=== PATIENT | female | born 1995 | race Caucasian/White ===

== ENCOUNTER 2016-04-30 22:09 | Outpatient (CLI) | payer OTHER ==
[~2016-04-30] VITALS: Ht 162.6 cm; Wt 66.6 kg
[~2016-04-30 22:09] MED LIST: FIORICET,ESG1 TABLET PO; MOTRIN400 MG PO; PRENATAL TABLE1 EAC3 PO; SINGULAIR5 MG PO
[2016-04-30 22:27] VITALS: BP 109/56
[2016-05-01] VITALS (14 sets, daily range): BP systolic 102–121; BP diastolic 56–77
[2016-05-01 01:14] LABS: EOSINOPHIL (%) 0.6 % (0-5); EOSINOPHIL COUNT 0.1 K/uL (0-0.3); HEMATOCRIT 33.5 % (36.0-46.0); IMMATURE GRANULOCYTE (%) 0.5 % (0.0-0.7); IMMATURE GRANULOCYTE COUNT 0.5 K/uL; LYMPHOCYTE COUNT 1.6 K/uL (1.0-2.8); MCHC 32.8 G/DL (30.0-36.0); MCV 79.2 FL (83-99); MEAN PLAT.VOLUME 11.8 uM^3 (9.5-12.4); MONOCYTE (%) 7.2 % (3-12); MONOCYTE COUNT 0.7 K/uL (0-0.8); NEUTROPHIL (%) 74.9 % (45-76); NEUTROPHIL COUNT 7.1 K/uL (1.8-6.4); PLATELET COUNT 268 K/uL (156-360); RBC DIS.WIDTH-CV 13.8 % (11.8-14.6); RBC DIS.WIDTH-SD 38.6 % (39-53); RED BLOOD COUNT 4.23 M/uL (3.80-5.20); WHITE BLOOD COUNT 9.6 K/uL (4.1-10.2)
== END 2016-05-01 17:06 | disposition home or self-care (01) ==
LOC: LDRP-OP → 2WEST 22:10 → LDRP-OP 06-01 00:56
PROVIDERS: Advanced Practice Midwife
DX: O47.1 False labor at or after 37 completed weeks of gestation (principal); O99.89 Other specified diseases and conditions complicating pregnancy, childbirth and the puerperium; Z3A.39 39 weeks gestation of pregnancy
CPT/HCPCS: 59025; 85025; G0378

== ENCOUNTER 2016-05-05 22:22 | Inpatient (IN) | payer OTHER ==
[2016-05-05 22:25] VITALS: BP 120/68
[2016-05-05 23:08] LABS: EOSINOPHIL (%) 0.2 % (0-5); HEMATOCRIT 34.4 % (36.0-46.0); IMMATURE GRANULOCYTE (%) 0.3 % (0.0-0.7); IMMATURE GRANULOCYTE COUNT 0.5 K/uL; LYMPHOCYTE COUNT 1.4 K/uL (1.0-2.8); MCH 25.9 PG (29.0-34.0); MCHC 32.8 G/DL (30.0-36.0); MCV 78.9 FL (83-99); MEAN PLAT.VOLUME 12.2 uM^3 (9.5-12.4); MONOCYTE (%) 5.1 % (3-12); MONOCYTE COUNT 0.7 K/uL (0-0.8); NEUTROPHIL (%) 84.6 % (45-76); NEUTROPHIL COUNT 12.2 K/uL (1.8-6.4); PLATELET COUNT 232 K/uL (156-360); RBC DIS.WIDTH-SD 39.2 % (39-53); RED BLOOD COUNT 4.36 M/uL (3.80-5.20); WHITE BLOOD COUNT 14.4 K/uL (4.1-10.2)
[2016-05-05 23:51] VITALS: BP 107/60
[2016-05-06] VITALS (18 sets, daily range): BP systolic 92–128; BP diastolic 49–62
[2016-05-06 06:04] LABS: BASE EXCESS -6.5 mEq/L (-3 to +3); CARBOXY HGB 0.4 % (0-5); METHEMOGLOBIN 1.8 % (0-1.5); PCO2 55 mm Hg (35-45)
[2016-05-06 06:07] LABS: BASE EXCESS -5.8 mEq/L (-3 to +3); BICARBONATE 20.1 mEq/L (22-26); METHEMOGLOBIN 1.7 % (0-1.5); PCO2 40 mm Hg (35-45); pH 7.31 (7.35-7.45)
[2016-05-06 06:08] LABS: PO2 < 28 mm Hg (80-100); SITE CHORD SAMPLE; pH 7.21 (7.35-7.45)
[2016-05-06 06:09] LABS: COMMENTS - BLOOD GASES ARTERIAL
[2016-05-06 06:09] LABS: COMMENTS - BLOOD GASES VENOUS; PO2 29 mm Hg (80-100); SITE CHORD SAMPLE
[2016-05-07 06:20] LABS: EOSINOPHIL (%) 0.9 % (0-5); EOSINOPHIL COUNT 0.1 K/uL (0-0.3); HEMATOCRIT 26.4 % (36.0-46.0); IMMATURE GRANULOCYTE (%) 0.5 % (0.0-0.7); IMMATURE GRANULOCYTE COUNT 0.1 K/uL; MCH 24.7 PG (29.0-34.0); MCHC 31.1 G/DL (30.0-36.0); MCV 79.5 FL (83-99); MONOCYTE (%) 8.6 % (3-12); NEUTROPHIL (%) 72.6 % (45-76); NEUTROPHIL COUNT 8.6 K/uL (1.8-6.4); PLATELET COUNT 208 K/uL (156-360); RBC DIS.WIDTH-CV 14.2 % (11.8-14.6); RBC DIS.WIDTH-SD 40.8 % (39-53); WHITE BLOOD COUNT 11.8 K/uL (4.1-10.2)
[2016-05-07 06:21] LABS: RED BLOOD COUNT 3.32 M/uL (3.80-5.20)
[2016-05-07 07:53] VITALS: BP 122/73
[2016-05-07 15:26] VITALS: BP 114/59
[2016-05-07 23:04] VITALS: BP 124/61
[2016-05-08 06:19] VITALS: BP 101/51
[2016-05-08] MEDS ORDERED: FEOSOL325 MG PO (12:44)
[2016-05-08] MEDS ORDERED: IBUPROFEN800 MG PO (12:44)
== END 2016-05-08 13:48 | disposition home or self-care (01) | DRG 775 ==
LOC: LDRP-OP 22:22 → 2WEST 22:23 → LDRP-OP 06-01 19:15
PROVIDERS: Advanced Practice Midwife; Obstetrics & Gynecology Obstetrics
PROC: 0W8NXZZ Division of Female Perineum, External Approach (ICD-10-PCS; principal; 2016-05-05)
PROC: 10907ZC Drainage of Amniotic Fluid, Therapeutic from Products of Conception, Via Natural or Artificial Opening (ICD-10-PCS; principal; 2016-05-05)
PROC: 00HU33Z Insertion of Infusion Device into Spinal Canal, Percutaneous Approach (ICD-10-PCS; 2016-05-06)
PROC: 3E0R3CZ (ICD-10-PCS; 2016-05-06)
PROC: 10E0XZZ Delivery of Products of Conception, External Approach (ICD-10-PCS; 2016-05-06)
PROC: 10S0XZZ Reposition Products of Conception, External Approach (ICD-10-PCS; 2016-05-06)
DX: O62.0 Primary inadequate contractions (principal); O66.0 Obstructed labor due to shoulder dystocia; O69.81X0 Labor and delivery complicated by cord around neck, without compression, not applicable or unspecified; O69.82X0 Labor and delivery complicated by other cord entanglement, without compression, not applicable or unspecified; O99.02 Anemia complicating childbirth; D62 Acute posthemorrhagic anemia; Z37.0 Single live birth; Z3A.40 40 weeks gestation of pregnancy
CPT/HCPCS: 36600; 82803; 85025; G0378; J2795; J3010; J7120

== ENCOUNTER 2016-06-25 22:59 | Emergency (ER) | payer OTHER ==
[~2016-06-25] VITALS: Ht 162.6 cm; Wt 59.9 kg
[~2016-06-25 22:59] MED LIST changes: +FEOSOL325 MG PO; +IBUPROFEN800 MG PO
[2016-06-26 00:54] VITALS: BP 111/60
== END 2016-06-26 01:19 | disposition home or self-care (01) ==
LOC: EXP 22:59 → EME 22:59 → EXP 06-26 01:19
DX: S80.01XA Contusion of right knee, initial encounter (principal); W22.09XA Striking against other stationary object, initial encounter
CPT/HCPCS: 73564; 99281; 99284

== ENCOUNTER 2016-07-27 00:23 | Emergency (ER) | payer OTHER ==
[~2016-07-27] VITALS: Ht 160 cm; Wt 60.8 kg
[2016-07-27 01:24] LABS: HEMATOCRIT 35.6 % (36.0-46.0); MCHC 30.6 G/DL (30.0-36.0); MCV 78.2 FL (83-99); MEAN PLAT.VOLUME 10.2 uM^3 (9.5-12.4); PLATELET COUNT 384 K/uL (156-360); RBC DIS.WIDTH-CV 15.1 % (11.8-14.6); RBC DIS.WIDTH-SD 42.8 % (39-53); RED BLOOD COUNT 4.55 M/uL (3.80-5.20); WHITE BLOOD COUNT 6.7 K/uL (4.1-10.2)
[2016-07-27 01:26] LABS: ADD MIUA? YES; BILIRUBIN NEGATIVE; BLOOD NEGATIVE; COLOR YELLOW ((YELLOW)); GLUCOSE (STRIP) NEGATIVE; KETONES NEGATIVE; LEUKOCYTES SMALL; NITRITE NEGATIVE; PROTEIN (STRIP) 30; SPECIFIC GRAVITY 1.023 (1.000-1.030); UROBILINOGEN 0.2 MG/DL (0.2-1.0)
[2016-07-27 01:31] LABS: BACTERIA RARE /HPF; EPITHELIAL CELLS 1+ /HPF; MUCUS TRACE /LPF; RED BLOOD CELLS 0-5 /HPF (0-5); UCUL ADDED? NO
[2016-07-27 01:38] LABS: CHLORIDE 105 mEq/L (99-109); POTASSIUM 3.7 mEq/L (3.7-5.4); SODIUM 140 mEq/L (136-147)
[2016-07-27 01:40] LABS: GLUCOSE 80 mg/dL (70-99)
[2016-07-27 01:41] LABS: ANION GAP 11 MEQ/L (2-14)
[2016-07-27 01:42] LABS: TOTAL BILIRUBIN 0.2 mg/dL (0.0-1.0)
[2016-07-27 01:43] LABS: ALKALINE PHOSPHATASE 114 IU/L (3-129)
[2016-07-27 01:44] LABS: GFR ESTIMATE (CALCULATED) > 59 mL/min/
[2016-07-27 01:45] LABS: UREA NITROGEN (BUN) 11 mg/dL (9-23)
[2016-07-27 01:47] LABS: LIPASE 29 U/L (1.0-51.0)
[2016-07-27 01:57] LABS: QUANTITATIVE HCG < 4.0 MIU/ML
[2016-07-27] MEDS ORDERED: AUGMENTIN875 MG PO (03:34)
[2016-07-27 04:18] VITALS: BP 122/75
[2016-07-28 12:19] LABS: CHLAMYDIA TRACHOMATIS POSITIVE; NEISSERIA GONORRHOEAE NEGATIVE
== END 2016-07-27 04:18 | disposition home or self-care (01) ==
LOC: EME 00:23
PROVIDERS: Emergency Medicine
DX: O90.89 Other complications of the puerperium, not elsewhere classified (principal); R10.31 Right lower quadrant pain; N30.90 Cystitis, unspecified without hematuria; N89.8 Other specified noninflammatory disorders of vagina; R11.2 Nausea with vomiting, unspecified; R42 Dizziness and giddiness
CPT/HCPCS: 76856; 80053; 81003; 83690; 84702; 85027; 87210; 87491; 87591; 99281; 99284

== ENCOUNTER 2016-11-08 02:43 | Emergency (ER) | payer OTHER ==
[~2016-11-08] VITALS: Ht 162.6 cm; Wt 62.6 kg
[~2016-11-08 02:43] MED LIST changes: +AUGMENTIN875 MG PO
[2016-11-08 03:08] LABS: ADD MIUA? YES; BILIRUBIN NEGATIVE; BLOOD SMALL; COLOR YELLOW ((YELLOW)); GLUCOSE (STRIP) NEGATIVE; KETONES 5; LEUKOCYTES LARGE; NITRITE NEGATIVE; PROTEIN (STRIP) 30; SPECIFIC GRAVITY 1.018 (1.000-1.030)
[2016-11-08 03:08] LABS: INTERNAL CONTROL VALID? YES
[2016-11-08 03:23] LABS: BACTERIA RARE /HPF; EPITHELIAL CELLS 1+ /HPF; MUCUS TRACE /LPF; RED BLOOD CELLS 15-20 /HPF (0-5); UCUL ADDED? YES; WHITE BLOOD CELLS TNTC /HPF (0-5)
[2016-11-08] MEDS ORDERED: ACYCLOVIR400 MG PO (03:38)
[2016-11-08] MEDS ORDERED: DOXYCYCLINE HY100 MG PO (03:38)
[2016-11-08] MEDS ORDERED: METRONIDAZOLE500 MG PO (03:38)
[2016-11-08 04:07] VITALS: BP 121/79
[2016-11-08 13:57] LABS: CHLAMYDIA TRACHOMATIS NEGATIVE; NEISSERIA GONORRHOEAE NEGATIVE
== END 2016-11-08 04:09 | disposition home or self-care (01) ==
LOC: EME 02:43
PROVIDERS: Emergency Medicine
DX: B00.9 Herpesviral infection, unspecified (principal); N73.9 Female pelvic inflammatory disease, unspecified; N30.91 Cystitis, unspecified with hematuria
CPT/HCPCS: 81003; 84703; 87077; 87086; 87210; 87491; 87591; 99281; 99283; J0696

== ENCOUNTER 2017-04-02 10:15 | Emergency (ER) | payer OTHER ==
[~2017-04-02] VITALS: Ht 160 cm; Wt 61.0 kg
[~2017-04-02 10:15] MED LIST changes: +ACYCLOVIR400 MG PO; +DOXYCYCLINE HY100 MG PO; +METRONIDAZOLE500 MG PO
[2017-04-02 16:22] LABS: HEMATOCRIT 43.3 % (36.0-46.0); HEMOGLOBIN 14.9 G/DL (11.9-15.5); MCH 28.4 PG (29.0-34.0); MCHC 34.4 G/DL (30.0-36.0); MCV 82.6 FL (83-99); PLATELET COUNT 314 K/uL (156-360); RBC DIS.WIDTH-CV 12.9 % (11.8-14.6); RBC DIS.WIDTH-SD 38.5 % (39-53); RED BLOOD COUNT 5.24 M/uL (3.80-5.20); WHITE BLOOD COUNT 8.5 K/uL (4.1-10.2)
[2017-04-02 16:34] LABS: CHLORIDE 106 mEq/L (99-109); POTASSIUM 3.5 mEq/L (3.7-5.4); SODIUM 137 mEq/L (136-147)
[2017-04-02 16:35] LABS: GLUCOSE 81 mg/dL (70-99)
[2017-04-02 16:38] LABS: AMPHETAMINE NEGATIVE (500 ng/mL); BARBITURATES NEGATIVE (200 ng/mL); BENZODIAZEPINES NEGATIVE (150 ng/mL); BUPRENORPHINE NEGATIVE (10 ng/mL); COCAINE NEGATIVE (150 ng/mL); METHADONE NEGATIVE (200 ng/mL); METHAMPHETAMINE NEGATIVE (500 ng/mL); OPIATES (MORPHINE) NEGATIVE (100 ng/mL); OXYCODONE NEGATIVE (100 ng/mL); PHENCYCLIDINE NEGATIVE (25 ng/mL); PROPOXYPHENE NEGATIVE (300 ng/mL); THC CANNABINOIDS NEGATIVE (50 ng/mL); TRICYCLIC ANTIDEPRESSANTS NEGATIVE (300 ng/mL)
[2017-04-02 16:39] LABS: CREATININE 0.8 mg/dL (0.6-1.3); GFR ESTIMATE (CALCULATED) > 59 mL/min/; SERUM ETHYL ALCOHOL < 10 mg/dL
[2017-04-02 16:40] LABS: UREA NITROGEN (BUN) 9 mg/dL (9-23)
[2017-04-02 19:05] VITALS: BP 121/77
== END 2017-04-02 19:06 | disposition home or self-care (01) ==
LOC: EME 10:15
PROVIDERS: Physician Assistant
DX: F43.25 Adjustment disorder with mixed disturbance of emotions and conduct (principal); F32.9 Major depressive disorder, single episode, unspecified
CPT/HCPCS: 80048; 85027; 90839; 99281; 99285; G0480

== ENCOUNTER 2017-04-05 20:28 | Emergency (ER) | payer OTHER ==
[~2017-04-05] VITALS: Ht 160 cm; Wt 53.8 kg
[2017-04-05 21:05] LABS: HEMATOCRIT 39.9 % (36.0-46.0); HEMOGLOBIN 13.7 G/DL (11.9-15.5); MCH 28.8 PG (29.0-34.0); MCHC 34.3 G/DL (30.0-36.0); MCV 83.8 FL (83-99); PLATELET COUNT 323 K/uL (156-360); RBC DIS.WIDTH-CV 12.9 % (11.8-14.6); RBC DIS.WIDTH-SD 39.3 % (39-53); RED BLOOD COUNT 4.76 M/uL (3.80-5.20); WHITE BLOOD COUNT 8.8 K/uL (4.1-10.2)
[2017-04-05 21:15] LABS: CHLORIDE 107 mEq/L (99-109); POTASSIUM 3.5 mEq/L (3.7-5.4)
[2017-04-05 21:16] LABS: SODIUM 138 mEq/L (136-147)
[2017-04-05 21:17] LABS: GLUCOSE 108 mg/dL (70-99)
[2017-04-05 21:20] LABS: SERUM ETHYL ALCOHOL < 10 mg/dL
[2017-04-05 21:21] LABS: CREATININE 0.8 mg/dL (0.6-1.3); GFR ESTIMATE (CALCULATED) > 59 mL/min/
[2017-04-05 21:22] LABS: UREA NITROGEN (BUN) 8 mg/dL (9-23)
[2017-04-05 21:29] VITALS: BP 114/69
== END 2017-04-05 21:35 | disposition home or self-care (01) ==
LOC: EME 20:28
PROVIDERS: Emergency Medicine Emergency Medical Services
DX: F32.9 Major depressive disorder, single episode, unspecified (principal)
CPT/HCPCS: 80048; 85027; 99281; 99285; G0480

== ENCOUNTER 2017-09-09 18:40 | Emergency (ER) | payer OTHER ==
[~2017-09-09] VITALS: Ht 162.6 cm; Wt 58.0 kg
[2017-09-09 19:19] LABS: HEMATOCRIT 41.5 % (36.0-46.0); HEMOGLOBIN 14.5 G/DL (11.9-15.5); MCH 29.9 PG (29.0-34.0); MCHC 34.9 G/DL (30.0-36.0); MCV 85.6 FL (83-99); PLATELET COUNT 283 K/uL (156-360); RBC DIS.WIDTH-CV 12.3 % (11.8-14.6); RBC DIS.WIDTH-SD 38.4 % (39-53); RED BLOOD COUNT 4.85 M/uL (3.80-5.20); WHITE BLOOD COUNT 9.3 K/uL (4.1-10.2)
[2017-09-09 19:28] LABS: ALBUMIN 4.4 g/dL (3.2-4.8)
[2017-09-09 19:29] LABS: CHLORIDE 105 mEq/L (99-109); POTASSIUM 3.8 mEq/L (3.7-5.4); SODIUM 139 mEq/L (136-147)
[2017-09-09 19:31] LABS: GLUCOSE 86 mg/dL (70-99); TOTAL PROTEIN 7.1 g/dL (6.4-8.3)
[2017-09-09 19:33] LABS: TOTAL BILIRUBIN 0.4 mg/dL (0.0-1.0)
[2017-09-09 19:34] LABS: ALKALINE PHOSPHATASE 76 IU/L (3-129)
[2017-09-09 19:35] LABS: CREATININE 0.8 mg/dL (0.6-1.3); GFR ESTIMATE (CALCULATED) > 59 mL/min/
[2017-09-09 19:36] LABS: AST (GOT) 19 IU/L (2-34); UREA NITROGEN (BUN) 13 mg/dL (9-23)
[2017-09-09 19:38] LABS: ALT (GPT) 13 IU/L (3-49)
[2017-09-09 19:40] LABS: APPEARANCE CLOUDY ((CLEAR)); BILIRUBIN NEGATIVE; BLOOD NEGATIVE; COLOR YELLOW ((YELLOW)); GLUCOSE (STRIP) NEGATIVE; KETONES NEGATIVE; LEUKOCYTES TRACE; NITRITE NEGATIVE; PROTEIN (STRIP) NEGATIVE; SPECIFIC GRAVITY 1.018 (1.000-1.030); UROBILINOGEN 0.2 MG/DL (0.2-1.0)
[2017-09-09 19:43] LABS: QUANTITATIVE HCG < 4.0 MIU/ML
[2017-09-09 19:46] LABS: BACTERIA RARE /HPF; EPITHELIAL CELLS 4+ /HPF; MUCUS TRACE /LPF; RED BLOOD CELLS 0-5 /HPF (0-5); UCUL ADDED? YES
[2017-09-09] MEDS ORDERED: MOTRIN600 MG PO (21:04)
[2017-09-09 21:27] VITALS: BP 109/63
== END 2017-09-09 21:28 | disposition home or self-care (01) ==
LOC: EME 18:40
PROVIDERS: Nurse Practitioner Family
DX: R10.32 Left lower quadrant pain (principal); Z91.018 Allergy to other foods
CPT/HCPCS: 76856; 80053; 81003; 84702; 85027; 87086; 99281; 99284; J1885